=== PATIENT | male | born 1990 | race Hispanic/Latino ===

== ENCOUNTER 2016-12-16 03:55 | Emergency (ER) | payer SELFPAY ==
[2016-12-16] MEDS ORDERED: NORCO 5/325 ONE (07:28)
--- NOTE | 2016-12-16 07:47 | Emergency Department Report ---
HPI - General Chief Complaint: Wound/Laceration Time Seen by Provider: 12/16/16 07:31 - HPI HPI: 26-year-old male presents today with a laceration to his nose and left cheek that occurred at 1700 hrs. yesterday. Patient states he was doing some yard work and a tree branch fell on his face. Denies fever, chills, nausea, vomiting , visual changes, dizziness, confusion, chest pain, shortness of breath. Also complaining of a mild headache that comes and goes. Describes as facial pain as 7 out of 10 constant dull ache that worsens with facial movement. Denies drinking any medication for pain relief. ED Past Medical Hx - Medications Home Medications: Home Medications Medication Instructions Recorded Confirmed Last Taken Type Acetaminophen/Codeine [Tylenol #3] 1 tab PO Q6H PRN #12 tab 12/16/16 Unknown Rx Neomy/Baci/Polymyx Oint [Triple 1 applic TP BID #2 tube 12/16/16 Unknown Rx Antibiotic] ED Review of Systems ROS: Stated complaint: Other details as noted in HPI Constitutional: denies: chills, fever, malaise Eyes: denies: eye pain ENT: denies: ear pain, throat pain, congestion Respiratory: denies: cough, shortness of breath, wheezing Cardiovascular: denies: chest pain, palpitations Endocrine: no symptoms reported Gastrointestinal: denies: abdominal pain, nausea, vomiting Neurological: headache. denies: weakness, numbness, paresthesias Physical Exam - Physical Exam Vital Signs: Vital Signs 12/16/16 12/16/16 04:20 08:37 Temperature 98.1 F Pulse Rate 113 H 88 Respiratory 18 18 Rate Blood Pressure 146/102 142/96 [Left] O2 Sat by Pulse 100 100 Oximetry Physical Exam: GENERAL: The patient is well-developed and well-nourished. Patient is in NAD. HEAD: Normocephalic. Atraumatic. FACE: Superficial laceration noted over the nasal bridge and left zygomatic arch. No active bleeding noted. Positive for tenderness to palpation and mild edema. EYES: Extraocular motions are intact, PERRL. No pain with extraocular motions. No conjunctival injection. EARS: External auditory canals and tympanic membranes clear; hearing grossly intact. NOSE: Normal nasal mucosa with no nasal discharge. THROAT: No erythema, swelling or exudates. NECK: No midline or paraspinal tenderness to palpation. Full range of motion. BACK: Full ROM. No midline or paraspinal tenderness to palpation. Negative straight leg raise bilaterally. CHEST/LUNGS: Clear to auscultation throughout. HEART/CARDIOVASCULAR: Regular rate and rhythm. No murmurs, rubs or gallops. ABDOMEN: Abdomen is soft, nontender. Bowel sounds normoactive. No guarding or rebound tenderness. EXTREMITIES: Peripheral pulses intact. Capillary refill less than 2 seconds. NEURO: Alert and oriented 3, fluid speech, EOMs intact, normal facial sensation , strength exam 5/5 upper and lower extremities, GCS equals 15, finger to nose normal ED Medical Decision Making - Lab Data Vital Signs 12/16/16 12/16/16 04:20 08:37 Temperature 98.1 F Pulse Rate 113 H 88 Respiratory 18 18 Rate Blood Pressure 146/102 142/96 [Left] O2 Sat by Pulse 100 100 Oximetry - Radiology Data Radiology results: report reviewed CT facial bones without contrast. No evidence of facial bone fracture. Paranasal sinuses appear clear. There are multiple patchy collections of soft tissue air in the deep soft tissues anterior to the left maxillary sinus. There is moderate soft tissue swelling in this area. This may be all posttraumatic in nature. - Medical Decision Making 26-year-old male presents today with a facial lacerations and edema post tree branch falling on his face. The CT facial bones without contrast reveals no facial bone fracture and clear paranasal sinuses. Soft tissue injury is identified. His wounds were copiously irrigated and explored. No foreign body was identified. Triple antibiotic ointment was applied and the wounds were dressed. Patient denies laceration repair and states he is okay with having a scar. A referral for plastic has been provided. Patient is in no acute distress at this time. He will be discharged home and is encouraged to follow up with a primary care provider. He will be sent home on triple antibiotic ointment and Tylenol 3 and is encouraged to return to the emergency room for any worsening symptoms. Critical care attestation.: If time is entered above; I have spent that time in minutes in the direct care of this critically ill patient, excluding procedure time. ED Disposition Clinical Impression: Soft tissue injury of face Qualifiers: Encounter type: initial encounter Qualified Code(s): S09.93XA - Unspecified injury of face, initial encounter Disposition: DISCHARGED TO HOME OR SELFCARE Is pt being admited?: No Does the pt Need Aspirin: No Condition: Stable Instructions: Laceration (ED) Additional Instructions: Follow up with primary care Provider. Return to the emergency department if symptoms worsen. Prescriptions: Acetaminophen/Codeine [Tylenol #3] 1 tab PO Q6H PRN #12 tab PRN Reason: Pain Neomy/Baci/Polymyx Oint [Triple Antibiotic] 1 applic TP BID #2 tube Referrals: PRIMARY CAREMD [Primary Care Provider] - 3-5 Days CROW ORTIZ MD [Staff Physician] - 3-5 Days [facility] [Outside] - 3-5 Days Forms: Work/School Release Form(ED), Accompanied Note Time of Disposition: 08:46
[2016-12-16] MEDS ORDERED: BOOSTRIX IM ONE (07:48)
[2016-12-16] MEDS ORDERED: TRIPLE ANTIBIOTIC TP ONE (07:48)
[2016-12-16 08:38] VITALS: BP 142/96
--- NOTE | 2016-12-16 08:59 | Cat Scan Report ---
FINAL REPORT PROCEDURE: CT FACIAL BONES WO CONTRAST TECHNIQUE: Computerized tomography of the facial bones and soft tissues with axial and coronal sections performed from the cranial aspect of the frontal sinuses to the caudal portion of the mandible without contrast material. HISTORY: facial injury and pain COMPARISON: No prior studies are available for comparison. FINDINGS: Bones: No significant abnormality. Paranasal sinuses: Clear. Soft tissues: There are multiple patchy collections of soft tissue air in the deep soft tissues anterior to the left maxillary sinus. There is moderate soft tissue swelling in this area. This may be all posttraumatic in nature.. Other: None. IMPRESSION: 1. Multiple patchy collections of deep soft tissue air noted anterior to the left maxillary sinus with some associated soft tissue swelling. This may indicate significant soft tissue injury here with laceration. 2. However there is no CT evidence facial bone fracture. 3. The paranasal sinuses appear clear.
[2016-12-16] MEDS ORDERED: NACL 0.9% IR ONE (10:00)
== END 2016-12-16 09:06 | disposition home or self-care (01) ==
LOC: ED 03:55
DX: S01.21XA Laceration without foreign body of nose, initial encounter (principal); S01.412A Laceration without foreign body of left cheek and temporomandibular area, initial encounter; W20.8XXA Other cause of strike by thrown, projected or falling object, initial encounter; Y93.9 Activity, unspecified; Y92.9 Unspecified place or not applicable; Y99.9 Unspecified external cause status
CPT/HCPCS: 70486; 90471; 90715; 99283; A6250

== ENCOUNTER 2018-02-07 04:33 | Emergency (ER) | payer SELFPAY | END 2018-02-07 05:05 | disposition home or self-care (01) | LOC: ED 04:33 | DX: R10.9 Unspecified abdominal pain (principal); Z53.21 Procedure and treatment not carried out due to patient leaving prior to being seen by health care provider ==